=== PATIENT | female | born 1965 | race Caucasian/White ===

== ENCOUNTER 2022-12-08 10:00 | Outpatient (CLI) | payer OTHER ==
--- NOTE | 2022-12-16 10:36 | Mammography Report ---
BILATERAL DIGITAL SCREENING MAMMOGRAM 3D/2D: 12/08/2022 CLINICAL: Routine screening. Comparison is made to exams dated: 09/03/2017 mammogram and 08/24/2020 mammogram - [facility]. There are scattered areas of fibroglandular density in both breasts (category b / 25%-50% glandular t issue). There is a biopsy clip in the left breast. No significant masses, calcifications, or other findings are seen in either breast. There has been no significant interval change. IMPRESSION: NEGATIVE There is no mammographic evidence of malignancy. A 1 year screening mammogram is recommended. Based on the Tyrer Cuzick model (a risk assessment model) the patients lifetime risk is 9.2% and her 10 year risk is 3.0%. According to the ACR, ACS, and NCCN guidelines, an annual breast MRI exam marilin g with mammogram is recommended if the patients lifetime risk is 20% or greater. This exam was interpreted at Station ID: [id number]. NOTE: For mammograms, a report in lay terms will be sent to the patient. Approximately 15% of breast malignancies will not be visualized mammographically. In the management of a palpable breast mass, a negative mammogram must not discourage biopsy of a clinically suspicious lesion. Electronically Signed By: Antwon melissa/andrés:12/15/2022 14:50:00 letter sent: No_Letter ACR BI-RADS Category 1: Negative 3341F PARENCHYMAL PATTERN: (A) - The breast(s) demonstrate(s) scattered fibroglandular densities. BI-RADS CATEGORY: (1) - 1 Mammogram [id number] 1 year screening LATERALITY: (B)
== END 2022-12-08 10:01 | disposition home or self-care (01) ==
LOC: DI 10:00
PROVIDERS: ATTEND Nurse Practitioner
DX: Z12.31 Encounter for screening mammogram for malignant neoplasm of breast (principal)

== ENCOUNTER 2023-03-02 07:02 | Outpatient (CLI) | payer OTHER ==
[2023-03-02 07:42] LABS: ESTIMATED AVERAGE GLUCOSE 183 mg/dL (70-100)
[2023-03-02 07:47] LABS: ALBUMIN/GLOBULIN RATIO 1.7 (1.0-2.2); ALKALINE PHOSPHATASE 61 IU/L (42-121); ALT ALANINE AMINOTRANSFERASE 21 IU/L (10-60); AST ASPARTATE AMINOTRANSFERASE 17 IU/L (10-42); BILIRUBIN,TOTAL 0.4 mg/dL (0.2-1.0); BUN - BLOOD UREA NITROGEN 15 mg/dL (6-20); CALCIUM 8.9 mg/dL (8.5-10.3); CARBON DIOXIDE - CO2 30 mmol/L (21-32); CHLORIDE 106 mmol/L (101-111); CHOL/HDL RATIO 2.2 (<4.4); CHOLESTEROL 125 mg/dL; CREATININE 0.7 mg/dL (0.6-1.3); CREATININE,URINE 108.3 mg/dL; GFR - MDRD 87 (>89); GLUCOSE 235 mg/dL (74-104); HDL CHOLESTEROL 56 mg/dL; LDL CHOLESTEROL,CALCULATED 58 mg/dL; MICROALBUM/CREATININE RATIO,UR 57.2 ug/mg (<30.0); MICROALBUMIN,URINE 6.2 mg/dL; POTASSIUM 4.3 mmol/L (3.5-4.5); SODIUM 139 mmol/L (135-145); TOTAL PROTEIN 6.3 g/dL (6.4-8.9); TRIGLYCERIDES 53 mg/dL (48-352); VLDL CHOLESTEROL 11 mg/dL
== END 2023-03-02 07:03 | disposition home or self-care (01) ==
LOC: LAB 07:02
PROVIDERS: ATTEND Internal Medicine Endocrinology, Diabetes & Metabolism
DX: E11.65 Type 2 diabetes mellitus with hyperglycemia (principal); Z79.4 Long term (current) use of insulin
CPT/HCPCS: 36415; 80053; 80061; 82043; 82570; 83036; 83721

== ENCOUNTER 2023-04-17 06:31 | Day surgery (SDC) | payer OTHER ==
[2023-04-17] MEDS ORDERED: BUPIVACAINE 0.25% PF 30 ML VIAL ONE (06:53)
[2023-04-17] MEDS ORDERED: LACTATED RINGERS 1,000 ML IV ONE ×2 (06:58→08:27)
[2023-04-17] MEDS ORDERED: POTASSIUM IODIDE/IODINE 14 ML SOLUTION ONE (07:07)
--- NOTE | 2023-04-17 07:07 | ANESTHESIA ---
Pre-Anesthesia VS, & Labs - Diagnosis high grade squamous intraepithelial lesion - Procedure LEEP procedure Vital Signs: Temp Pulse Resp BP Pulse Ox O2 Flow Rate 36.1 C L 79 15 105/73 97 04/17/23 06:48 04/17/23 06:48 04/17/23 06:48 04/17/23 06:48 04/17/23 06:48 Height: 5 ft 6 in Weight (kg): 81.1 kg Body Mass Index: 28.8 BMI Classification: Overweight - NPO >8 hours - Is Patient ?: No - Lab Results Current Lab Results: Laboratory Tests 04/17/23 06:58: POC Whole Bld Glucose 286 H Lab results reviewed: Yes Home Medications and Allergies Home Medications: Ambulatory Orders Dulaglutide [Trulicity] 3 mg SQ OAW 03/18/23 Gabapentin [Neurontin] 300 mg PO DAILY 03/18/23 Insulin Aspart [Novolog Flexpen] 4 - 6 unit SUBQ AC 03/18/23 Insulin Glargine,Hum.rec.anlog [Basaglar Kwikpen U-100] 22 unit SUBQ DAILY 03/18/23 Metformin HCl 1,000 mg PO DAILY 03/18/23 Rosuvastatin Calcium [Crestor] 40 mg PO DAILY 03/18/23 Dulaglutide [Trulicity] 3 mg SQ OAW 03/18/23 Gabapentin [Neurontin] 300 mg PO DAILY 03/18/23 Insulin Aspart [Novolog Flexpen] 4 - 6 unit SUBQ AC 03/18/23 Insulin Glargine,Hum.rec.anlog [Basaglar Kwikpen U-100] 22 unit SUBQ DAILY 03/18/23 Metformin HCl 1,000 mg PO DAILY 03/18/23 Rosuvastatin Calcium [Crestor] 40 mg PO DAILY 03/18/23 Allergies/Adverse Reactions: Allergies Allergy/AdvReac Type Severity Reaction Status Date / Time ampicillin Allergy Hives Verified 03/18/23 14:32 Sulfa (Sulfonamide Allergy Hives Verified 03/18/23 14:32 Antibiotics) Anes History & Medical History - Anesthetic History Anesthesia Complications: reports: No previous complications Family history of Anesthesia Complications: Denies Family history of Malignant Hyperthermia: Denies - Medical History Cardiovascular: reports: None Pulmonary: reports: None Gastrointestinal: reports: None Urinary: reports: None Musculoskeletal: reports: None Endocrine/Autoimmune: reports: Type 2 diabetes Skin: reports: None Psychosocial: reports: Alcohol (social) - Surgical History Gynecologic: reports: Other Exam General: Alert, Oriented x3, Cooperative Dental: WNL Mouth Openin Fingerbreadth Neck Mobility: Normal Mallampati classification: II Thyromental Distance: 4-6 cm Respiratory: Lungs clear, Normal breath sounds, No respiratory distress Cardiovascular: Regular rate Neurological: Normal speech Mental/Cognitive Status: Alert/Oriented X3, Normal for patient Cognitive Status: Within normal limits Plan Anesthesia Type: General Consent for Procedure(s) Verified and Reviewed: Yes Code Status: Attempt Resuscitation ASA classification: 2-Mild systemic disease Is this case an emergency?: No
[2023-04-17] MEDS ORDERED: ePHEDrine 50 MG/ML VIAL IVP PRN (07:09)
[2023-04-17] MEDS ORDERED: METOCLOPRAMIDE 10 MG/2 ML VIAL IVP PRN (07:09)
[2023-04-17] MEDS ORDERED: HYDROmorphone 0.5 MG/0.5 ML SYRINGE IVP PRN (07:09)
[2023-04-17] MEDS ORDERED: ATROPINE ABBOJECT 1 MG/10 ML SYRINGE IVP PRN (07:09)
[2023-04-17] MEDS ORDERED: MORPHINE 2 MG/ML CARPUJECT IVP PRN (07:09)
[2023-04-17] MEDS ORDERED: fentaNYL 100 MCG/2 ML VIAL IVP PRN (07:09)
[2023-04-17] MEDS ORDERED: NALOXONE 0.4 MG/ML VIAL IVP PRN (07:09)
[2023-04-17] MEDS ORDERED: ONDANSETRON 4 MG/2 ML VIAL IVP PRN (07:09)
[2023-04-17] MEDS ORDERED: PROPOFOL 500 MG/50 ML 500 MG/50 ML VIAL ONE (07:13)
[2023-04-17] MEDS ORDERED: MIDAZOLAM 2 MG/2 ML VIAL ONE (07:20)
--- NOTE | 2023-04-17 07:29 | HISTORY & PHYSICAL EXAMINATION ---
History and Physical - History and Physical HPI: Patient is a 58-year-old postmenopausal female presenting today for scheduled. LEEP procedure for H LILIANA with HPV positive. She has no further questions. All other symptoms reviewed and were negative except per HPI. PMH Diabetes PSH Endometrial ablation Breast surgery SH Previous smoker Family History Mother: Allergies Maternal grandmother: Arthritis, coronary artery disease, high cholesterol, hypertension Maternal grandfather: Stroke, arthritis, hyperlipidemia, hypertension Allergies Sulfa Ampicillin Medications Trulicity 1.5 mg / 0.5 mL Basaglar Rosuvastatin 40 mg NovoLog Metformin 500 mg Gabapentin 100 mg Physical exam: General: Alert, oriented, no acute distress Head: Normal cephalic atraumatic Eyes: PERRLA, extraocular motions intact. Respiratory: Normal rate of respiration. No accessory muscle use, normal respiratory effort. Cardiovascular: Regular rate and rhythm Abdomen: Nontender, nondistended Extremities: Normal range of motion Neuro: Oriented x3. Normal movements Psych: Appropriate mood and affect. Normal judgment and insight Plan 58-year-old postmenopausal female here for LEEP HSIL: Patient is very anxious about this process, and surgery was delayed previously. We discussed the risk, benefits, alternatives of this. She has no questions and is ready to proceed. Diabetes: Trulicity held, so sugar is little high. We will give subcutaneous insulin.
[2023-04-17] MEDS ORDERED: INSULIN LISPRO 300 UNIT/3 ML PEN SUBQ SCH (07:35)
[2023-04-17] MEDS ORDERED: LACTATED RINGERS 1,000 ML IV SCH (08:00)
[2023-04-17] MEDS ORDERED: POTASSIUM IODIDE/IODINE 14 ML SOLUTION TOP ONE (08:02)
[2023-04-17] MEDS ORDERED: BUPIVACAINE 0.25% PF 30 ML VIAL SUBQ ONE ×2 (08:02)
[2023-04-17] MEDS ORDERED: FERRIC SUBSULFATE 8 ML SOLUTION (FOR OR) TOP ONE (08:13)
[2023-04-17] MEDS ORDERED: oxyCODONE 5 MG TABLET PO PRN (08:24)
--- NOTE | 2023-04-17 08:33 | OPERATIVE REPORT ---
Operative Report - General Procedure Date: 04/17/23 Planned Procedure: LEEP Conization Pre-Op Diagnosis: HSIL Procedure Performed: LEEP Conization Post Op Diagnosis: HSIL, Status post LEEP - Procedure Note Primary Surgeon: Kaden Marques MD Anesthesia Provider: Lisa Olivarez CRNA Anesthesia Technique: Other (IV general) Pathology: LEEP conization, tag at 12:00 IV Fluids (mL): 800 Estimated Blood Loss (mL): 20 Urine Output (mL): 0 (Voided prior to procedure) Indications: H LILIANA Findings: Friable cervix with erythema at approximate 11:00 and 5:00. Complications: None - Other Other Information/Narrative: Patient was taken to the operating room where IV anesthesia was obtained without difficulty. She was placed in the dorsolithotomy position and after a timeout, a coated speculum was used to visualize the cervix. A small amount of local anesthesia was used to infiltrate the edges. There was some friable tissue and a small amount of bleeding when wiped with a sponge stick. I then used Lugol's solution to highlight the transformation zone. After good observation of the entire cervix, I used a LEEP electrode to con's eyes the cervix and remove the transformation zone. The sample was tagged at 12:00. Using Bovie electrocautery, mostly bleeding was stopped. After small amount of oozing, Monsel's solution was applied which achieved good hemostasis. The patient was stable and taken to PACU in good condition after counts were correct.
[2023-04-17 09:03] VITALS: BP 111/70; O2SAT 98
--- NOTE | 2023-04-17 10:49 | ANESTHESIA POST OP EVALUATION ---
Anesthesia Post Eval - Post Anesthesia Eval Vitals: Last Vital Signs Temp 36.2 C L 04/17/23 08:54 Pulse 73 04/17/23 08:54 Resp 16 04/17/23 08:54 BP 111/70 04/17/23 08:54 Pulse Ox 98 04/17/23 08:54 O2 Flow Rate CV Function Including HR & BP: Stable Pain Control: Satisfactory Nausea & Vomiting: Negative Mental Status: Baseline Respiratory Status: Airway Patent Hydration Status: Satisfactory Anesthesia Complications: None
[2023-04-17] MEDS ORDERED: IBUPROFEN 600 MG TABLET PO SCH (12:00)
== END 2023-04-17 06:32 | disposition home or self-care (01) ==
LOC: SDS 06:31
PROVIDERS: ATTEND Obstetrics & Gynecology
PROC: 0UBC7ZX Excision of Cervix, Via Natural or Artificial Opening, Diagnostic (ICD-10-PCS; principal; 2023-04-17 07:30)
DX: D06.0 Carcinoma in situ of endocervix (principal); E11.9 Type 2 diabetes mellitus without complications; Z79.84 Long term (current) use of oral hypoglycemic drugs; Z79.85 Long-term (current) use of injectable non-insulin antidiabetic drugs
CPT/HCPCS: 57522; A9270; J7120

== ENCOUNTER 2023-09-26 11:18 | Outpatient (CLI) | payer OTHER ==
[2023-09-26 11:37] LABS: BASOPHILS # (AUTO) 0.1 10^3/uL (0.0-0.1); BASOPHILS % (AUTO) 1.3 %; EOSINOPHILS # (AUTO) 0.1 10^3/uL (0.0-0.7); EOSINOPHILS % (AUTO) 1.5 %; HGB - HEMOGLOBIN 14.8 g/dL (12.0-16.0); LYMPHOCYTES # (AUTO) 1.8 10^3/uL (1.5-3.5); LYMPHOCYTES % (AUTO) 36.7 %; MEAN CORPUSCULAR HEMOGLOBIN 30.3 pg (27.0-31.0); MEAN CORPUSCULAR HGB CONC 33.6 g/dL (32.0-36.0); MEAN PLATELET VOLUME 9.7 fL (7.9-10.8); MONOCYTES # (AUTO) 0.4 10^3/uL (0.0-1.0); MONOCYTES % (AUTO) 7.3 %; NEUTROPHILS # (AUTO) 2.6 10^3/uL (1.5-6.6); PLT - PLATELET COUNT 243 10^3/uL (130-450); RED BLOOD COUNT 4.89 10^6/uL (4.20-5.40); RED CELL DISTRIBUTION WIDTH 11.9 % (12.0-15.0); WHITE BLOOD COUNT 4.8 x10^3/uL (4.8-10.8)
[2023-09-26 11:47] LABS: ALBUMIN 4.4 g/dL (3.2-5.5); ALBUMIN/GLOBULIN RATIO 1.7 (1.0-2.2); ALKALINE PHOSPHATASE 56 IU/L (42-121); ALT ALANINE AMINOTRANSFERASE 19 IU/L (10-60); AST ASPARTATE AMINOTRANSFERASE 17 IU/L (10-42); BILIRUBIN,TOTAL 0.6 mg/dL (0.2-1.0); BUN - BLOOD UREA NITROGEN 12 mg/dL (6-20); CARBON DIOXIDE - CO2 30 mmol/L (21-32); CHLORIDE 102 mmol/L (101-111); CHOL/HDL RATIO 2.7 (<4.4); CHOLESTEROL 134 mg/dL; CREATININE 0.8 mg/dL (0.6-1.3); GFR - MDRD 74 (>89); GLUCOSE 219 mg/dL (74-104); HDL CHOLESTEROL 50 mg/dL; LDL CHOLESTEROL,CALCULATED 60 mg/dL; LDL/HDL RATIO 1.2 (<4.4); POTASSIUM 4.8 mmol/L (3.5-4.5); SODIUM 137 mmol/L (135-145); TRIGLYCERIDES 120 mg/dL (48-352); VLDL CHOLESTEROL 24 mg/dL
[2023-09-26 11:48] LABS: CREATININE,URINE 66.3 mg/dL; MICROALBUM/CREATININE RATIO,UR 16.6 ug/mg (<30.0); MICROALBUMIN,URINE 1.1 mg/dL
[2023-09-26 12:09] LABS: ESTIMATED AVERAGE GLUCOSE 180 mg/dL (70-100); HEMOGLOBIN A1c% 7.9 % (4.27-6.07)
== END 2023-09-26 11:19 | disposition home or self-care (01) ==
LOC: LAB 11:18
PROVIDERS: ATTEND Internal Medicine
DX: E11.9 Type 2 diabetes mellitus without complications (principal)
CPT/HCPCS: 36415; 80053; 80061; 82043; 82570; 83036; 83721; 85025

== ENCOUNTER 2023-12-11 08:36 | Outpatient (CLI) | payer OTHER | END 2023-12-11 08:37 | disposition home or self-care (01) | LOC: SC 08:36 | PROVIDERS: ATTEND Nurse Practitioner Family | DX: G47.33 Obstructive sleep apnea (adult) (pediatric) (principal); E66.3 Overweight; Z68.28 Body mass index [BMI] 28.0-28.9, adult | CPT/HCPCS: 95806 ==

== ENCOUNTER 2024-01-12 10:26 | Outpatient (CLI) | payer OTHER ==
--- NOTE | 2024-01-12 10:21 | SLEEP CARE CONSULTATION ---
Information from patient questionnaire entered by Migdalia Mast. I have reviewed and concur with the information entered by Migdalia Mast. This document represents the service I personally performed and the decisions made by , Harriet Soares ARNP. History of Present Illness Service Date and Time: 01/12/2024 1000 Initial Goldonna Sleepiness Scale score: 5 (11/20/2023) Current [place]onna Sleepiness Scale score: 4 Additional HPI information: SANDRA ORTEGA returns for follow up and results of the recently performed home sleep study. The sleep study done on 12/11/2023 showed mild obstructive sleep apnea with an average AHI of 10.7 and guillermina oxygen saturation of 83%. I explained the pathophysiology behind obstructive sleep apnea. We then spent quite a bit of time discussing different treatment options. For mild obstructive sleep apnea, surgery and oral appliance are alternatives to nasal CPAP therapy but in moderate or severe cases, nasal CPAP is the most effective and reliable treatment. I reviewed the impact of weight changes on sleep apnea and strongly recommended losing weight. After some discussion, the patient opted to go with the nasal CPAP therapy. Nasal autoCPAP set at 4-15 cmH20 will be ordered with rationale explained. A manual titration study will be ordered if unable to find optimal pressure with office adjustments. I explained how CPAP machine works and what to expect when using the machine. Using CPAP every night in order to get used to it was emphasized. Patient advised to put CPAP mask on before getting into bed so as not to fall asleep without CPAP. To assist acclimation to CPAP use, it could also be used for a short time during day while reading or watching TV. The patient was instructed to call the CPAP supplier to discuss any mechanical problem that may occur. If the mask given is uncomfortable or is difficult to keep on through the night even with adjustment, contact the CPAP supplier as many will replace with another mask style if notified before 30 days. If snoring or perceives is not getting enough air or too much air from the machine, notify this office. Patient counseled not drink alcohol less than 4 hours before bedtime as it can increase snoring and apnea. Patient was cautioned about risks of drowsy driving until sleepiness symptoms resolve. Patient denies drowsy driving. Sleep Study - Results Type of Sleep Study: Home sleep study (COMPLETED 12/11/23 MILD) Prior sleep studies: No Polysomnography/Home Sleep Study results: Physician Impression: The quality of the study is good. The length of the study is adequate (> 240 minutes). Please also see the tabulated and graphic data. 1. Obstructive Sleep Apnea-Hypopnea (ICD-10 G47.33), mild, with an AHI of 10.7/hr and guillermina SaO2 of 83%. During the study, the patient had 27 apneas (27 obstructive, 0 central, 0 mixed) and 40 hypopneas. The longest episode lasted 92.5 seconds. The patient did not sleep supine during this study. 2. Hypoxemia (ICD-10 R09.02), mild, with the lowest oxygen saturation of 83 % and 3.2 minutes with SaO2 under 90%. Baseline oxygen saturation was normal (Average oxygen saturation was 93%). Allergies and Home Medications Known drug allergies: Yes (as listed) Drug allergies reviewed: Yes Home medication list reviewed: Yes (stopped Trulicity; started Ozempic) Allergy and home medication list: Allergies ampicillin Allergy (Verified 01/08/24 13:21) Hives Sulfa (Sulfonamide Antibiotics) Allergy (Verified 01/08/24 13:21) Hives Review of Systems Review of systems same as previous: Yes (no changes) Physical Exam Vital signs obtained and entered by: Harriet Rios NP Height: 5 ft 6 in Weight: 179 lb 6.4 oz (per pt) Body Mass Index: 28.9 BMI Classification: Overweight Impression and Plan 1. Obstructive Sleep Apnea-Hypopnea Syndrome, mild, with lowest oxygen saturation of 83%. Obviously this is the cause of the patients symptoms of unrefreshed sleep, and excessive daytime sleepiness. Positive pressure therapy could benefit hypertension. As mentioned above, the patient will be started on nasal autoCPAP therapy with pressure set at 4-15 cmH2O. A manual titration study will be completed if unable to find optimal treatment pressure with office adjustments. Compliance guidelines also reviewed. A copy of compliance guidelines will be given for reference at check out. Because the apnea is more severe supine, I instructed to avoid sleeping supine using pillow positioning until able to start CPAP use. 2. Hypoxemia, mild, with a guillermina oxygen saturation of 83% and 3.2 minutes spent under 90%. The baseline oxygen saturation was normal with an average oxygen saturation of 93%. 3. Overweight, unspecified. Currently patients BMI is 28.9. Obesity increases the risk of apnea, CPAP pressure requirements and overall health risks especially cardiovascular and diabetes. Thus patient is advised to lose weight. * Nasal auto CPAP therapy, pressure at 4-15 cm H2O. * Attempt to lose weight. * Avoid alcohol consumption near bedtime. * Avoid supine sleep until using CPAP. * The patient is again cautioned about driving until sleepiness completely resolves. * Return one month after CPAP obtained. I will assess response to therapy and compliance at that time. Counseling Topics: Weight loss health impact Prescriptions: Auto CPAP Visit Type: Telehealth Video Video Type: Doximmarlon Patient Location: Home Location of Provider: Office Patient agrees and consents to this telehealth visit type: Yes Patient agrees to have their insurance billed: Yes Time Spent with Patient (minutes): 21 Provider Statement: I spent 100% of the Telehealth Video Call with the patient with greater than 50% spent counseling the patient and coordination of care.
== END 2024-01-12 10:27 | disposition home or self-care (01) ==
LOC: SC 10:26
PROVIDERS: ATTEND Nurse Practitioner Family
DX: G47.33 Obstructive sleep apnea (adult) (pediatric) (principal); R09.02 Hypoxemia; E66.3 Overweight; Z68.28 Body mass index [BMI] 28.0-28.9, adult

== ENCOUNTER 2024-03-04 06:57 | Outpatient (CLI) | payer OTHER ==
[2024-03-04 07:30] LABS: ALBUMIN 4.1 g/dL (3.2-5.5); ALBUMIN/GLOBULIN RATIO 1.5 (1.0-2.2); ALKALINE PHOSPHATASE 57 IU/L (42-121); ALT ALANINE AMINOTRANSFERASE 13 IU/L (10-60); AST ASPARTATE AMINOTRANSFERASE 14 IU/L (10-42); BILIRUBIN,TOTAL 0.4 mg/dL (0.2-1.0); BUN - BLOOD UREA NITROGEN 16 mg/dL (6-20); CALCIUM 9.2 mg/dL (8.5-10.3); CARBON DIOXIDE - CO2 29 mmol/L (21-32); CHLORIDE 101 mmol/L (101-111); CHOL/HDL RATIO 3.2 (<4.4); CHOLESTEROL 168 mg/dL; CREATININE 0.8 mg/dL (0.6-1.3); GFR - MDRD 74 (>89); GLUCOSE 166 mg/dL (74-104); HDL CHOLESTEROL 53 mg/dL; LDL CHOLESTEROL,CALCULATED 96 mg/dL; LDL/HDL RATIO 1.8 (<4.4); POTASSIUM 4.2 mmol/L (3.5-4.5); SODIUM 137 mmol/L (135-145); TOTAL PROTEIN 6.8 g/dL (6.4-8.9); TRIGLYCERIDES 96 mg/dL; VLDL CHOLESTEROL 19 mg/dL
[2024-03-04 07:31] LABS: CREATININE,URINE 47.9 mg/dL
[2024-03-04 07:33] LABS: MICROALBUMIN,URINE < 0.7 mg/dL
[2024-03-04 09:36] LABS: ESTIMATED AVERAGE GLUCOSE 166 mg/dL (70-100); HEMOGLOBIN A1c% 7.4 % (4.27-6.07)
== END 2024-03-04 06:58 | disposition home or self-care (01) ==
LOC: LAB 06:57
PROVIDERS: ATTEND Internal Medicine Endocrinology, Diabetes & Metabolism
DX: E11.65 Type 2 diabetes mellitus with hyperglycemia (principal); Z79.4 Long term (current) use of insulin
CPT/HCPCS: 36415; 80053; 80061; 82043; 82570; 83036; 83721

== ENCOUNTER 2025-04-26 18:02 | Observation (INO) ==
[2025-04-26 18:34] LABS: HCT - HEMATOCRIT 49.5 % (37.0-47.0); HGB - HEMOGLOBIN 16.5 g/dL (12.0-16.0); MEAN PLATELET VOLUME 9.9 fL (7.9-10.8); NRBC ABSOLUTE COUNT (AUTO) 0.00 x10^3/uL; NUCLEATED RED BLOOD CELLS AUTO 0.0 /100WBC; PLT - PLATELET COUNT 379 10^3/uL (130-450); RED CELL DISTRIBUTION WIDTH 13.2 % (12.0-15.0)
[2025-04-26] MEDS: SODIUM CHLORIDE 0.9% 1,000 ML IV STA (18:42)
--- OUTSIDE RECORDS SUMMARY | 2025-04-26 19:04 | EXTERNAL MEDICAL SUMMARY RPT | Continuity of Care Document ---
Author Organization [facility] Address [address] [address] Phone Results/Labs test date facility value unit notes Result panel 1 GLUCOSE, WHOLE BLOOD 2025-04-26 18:13 [facility] 410 (missing) (missing) Result panel 2 NUCLEATED RED BLOOD CELLS AUTO 2025-04-26 18:28 [facility] 0.0 /100wbc (missing) EOSINOPHILS # (AUTO) 2025-04-26 18:28 [facility] 0.0 10 3/ul (missing) NRBC ABSOLUTE COUNT (AUTO) 2025-04-26 18:28 [facility] 0.00 x10 3/ul (missing) BASOPHILS # (AUTO) 2025-04-26 18:28 [facility] 0.1 10 3/ul (missing) MONOCYTES # (AUTO) 2025-04-26 18:28 [facility] 0.6 10 3/ul (missing) LYMPHOCYTES # (AUTO) 2025-04-26 18:28 [facility] 1.4 10 3/ul (missing) WHITE BLOOD COUNT 2025-04-26 18:28 [facility] 11.7 x10 3/ul (missing) RED CELL DISTRIBUTION WIDTH 2025-04-26 18:28 [facility] 13.2 % (il ssi) HGB - HEMOGLOBIN 2025-04-26 18:28 [facility] 16.5 g /dl (missing) LIPASE 2025-04-26 18:28 [facility] 22 u/l As of December 2022 testing method has changed, this may include reference ranges. MEAN CORPUSCULAR HEMOGLOBIN 2025-04-26 18:28 [facility] 29.4 pg (missing) MEAN CORPUSCULAR HGB CONC 2025-04-26 18:28 [facility] 33.3 g/dl (missing) PLT - PLATELET COUNT 2025-04-26 18:28 [facility] 379 10 3/ul (missing) HCT - HEMATOCRIT 2025-04-26 18:28 [facility] 49.5 % (missing) RED BLOOD [facility] 2025-04-26 [facility] 6/ul (missing) MEAN CORPUSCULAR VOLUME 2025-04-26 18:28 [facility] 88.1 fl (missing) NEUTROPHILS # (AUTO) 2025-04-26 18:28 [facility] 9.5 10 3/ul (missing) MEAN PLATELET VOLUME 2025-04-26 18:28 [facility] 9.9 fl (missing) KETONES, SERUM (ACETEST) 2025-04-26 18:28 [facility] SMALL (missing) (missing) Social History date description facility
[2025-04-26 19:06] LABS: ALT ALANINE AMINOTRANSFERASE 19.0 IU/L (10-60); AST ASPARTATE AMINOTRANSFERASE 13.0 IU/L (10-42); BUN - BLOOD UREA NITROGEN 16.0 mg/dL (6-20); CARBON DIOXIDE - CO2 11.0 mmol/L (21-32); CREATININE 0.9 mg/dL (0.6-1.3); GFR - MDRD 64.0 (>89)
--- NOTE | 2025-04-26 19:15 | ED Physician Documentation ---
History of Present Illness Stated complaint Stated Complaint: N/V, HEAD PX Chief complaint Chief Complaint: General Additonal information Additional information: 60-year-old female with a history of type 2 diabetes and prior diabetic ketoacidosis requiring life support for three days presents to the emergency department via private vehicle for evaluation of nausea, vomiting, and headache. The patient reports that her symptoms began earlier today and have progressively worsened. 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 She has not taken her long-acting insulin for the past week because of insurance issues and has been significantly cutting back on her short-acting insulin doses to make her supply last. She denies chest pain, shortness of breath, or abdominal pain. No recent illness, fever, or sick contacts reported. Meds/Allgy Home Medications Ambulatory Orders Medication Instructions Recorded Confirmed insulin aspart U-100 100 unit/mL 4 - 6 unit subcut AC 03/18/23 08/02/24 (3 mL) subcutaneous pen (Novolog FlexPen U-100 Insulin aspart) insulin glargine 100 unit/mL (3 22 unit subcut DAILY 0 03/18/23 08/02/24 mL) subcutaneous pen (Basaglar KwikPen U-100 Insulin) metformin 1,000 mg tablet 1,000 mg PO DAILY 03/18/23 0 08/02/24 semaglutide 1 mg/dose (4 mg/3 mL) See Rx Instructions .Route .COMPLEX 01/12/24 08/02/24 subcutaneous pen injector (Ozempic) gabapentin 300 mg capsule 300 mg PO DAILY #270 caps 08/02/24 rosuvastatin 40 mg tablet (Crestor) 40 mg PO DAILY #90 tabs 07/28/24 08/02/24 semaglutide 1 mg/dose (4 mg/3 mL) 1 mg subcut QWEEK 08/02/24 subcutaneous pen injector (Ozempic) Allergies Allergies Allergy/AdvReac Type Severity Reaction Status Date / Time amoxicillin Allergy Severe Hives Verified 04/26/25 18:17 empagliflozin (From Allergy Severe Unknown Verified 04/26/25 18:17 Jardiance) niacin Allergy Severe Hives Verified 04/26/25 18:17 ampicillin Allergy Hives Verified 04/26/25 18:17 Sulfa (Sulfonamide Allergy Hives Verified 04/26/25 18:17 Antibiotics) PFSH Active Problems All Active Problems (Updated 04/26/25 @ 20:42 by Ashley Evangelista RN) Swollen L ankle (Acute) Type 2 diabetes mellitus (Acute) Tinnitus, bilateral (Acute) Medical History Medical History (Updated 04/26/25 @ 20:42 by Ashley Evangelista RN) DKA (diabetic ketoacidosis) Social History Social History If you are a former smoker, when did you quit? (Date/Year): 1991 Number of Years Smoked: 4 How many cigarettes a day do you smoke? (20 cigarettes=1 Pk): 2 Second hand tobacco smoke exposure: No Do you dip or chew tobacco?: No Do you vape?: No Do you feel safe in your home environment?: Yes History of physical, verbal, emotional, or financial abuse?: No ETOH Use: Wine ETOH - Additional Notes: 1-2 per week Substance Use: denies use Exam Exam Vital Signs: Vital Signs x48h Temp Pulse Resp BP Pulse Ox 04/26/25 21:57 90 141/67 H 98 04/26/25 21:27 94 136/70 H 97 04/26/25 20:57 92 144/70 H 99 04/26/25 18:30 18 04/26/25 18:10 36.8 C 111 H 18 172/94 H 97 Constitutional normal general appearance, no apparent distress, average body habitus, no limitations and alert [facility] normocephalic and head/scalp atraumatic Eyes PERRL Chest inspection of chest normal Respiratory breath sounds equal bilaterally and normal respiratory effort Cardiovascular normal heart rate noted Gastrointestinal abdomen normal to inspection, abdomen soft to palpation, nontender to palpation, nondistended and no masses Extremities normal to inspection Psychiatry tearful Skin skin color normal Results Vitals Vitals: Vital Signs - 24 hr 04/26/25 18:10 04/26/25 18:30 04/26/25 19:16 Temperature 36.8 C Temperature Source Temporal Artery Scan Pulse Rate 111 H Respiratory Rate 18 18 Blood Pressure 172/94 H O2 Saturation 97 O2 Source Room air Room air Pain Intensity 5 4 7 04/26/25 20:57 04/26/25 21:24 10/29/25 21:27 Temperature Temperature Source Pulse Rate 92 94 Respiratory Rate Blood Pressure 144/70 H 136/70 H O2 Saturation 99 97 O2 Source Room air Room air Pain Intensity 3 04/26/25 21:57 04/26/25 22:42 Temperature Temperature Source Pulse Rate 90 Respiratory Rate Blood Pressure 141/67 H O2 Saturation 98 O2 Source Room air Pain Intensity 7 Oxygen O2 Source Room air EKG (time done) 2002: EKG releavant findings:: EKG personally interpreted by author of this note. 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) Computer interpretation: Agree with computer Labs Labs: Laboratory Tests 04/26/25 04/26/25 04/26/25 18:13 18:28 19:24 WBC 11.7 H RBC 5.62 H Hgb 16.5 H Hct 49.5 H MCV 88.1 MCH 29.4 MCHC 33.3 RDW 13.2 Plt Count 379 MPV 9.9 Neut # (Auto) 9.5 H Lymph # (Auto) 1.4 L Mcintosh # (Auto) 0.6 Eos # (Auto) 0.0 Baso # (Auto) 0.1 Absolute Nucleated RBC 0.00 Nucleated RBC % 0.0 VBG pH 7.121 L* VBG pCO2 26.0 L VBG pO2 43.8 VBG HCO3 8.5 L VBG Total CO2 9.3 L VBG O2 Saturation 63.0 VBG Base Excess -21.0 L Sodium 130 L Potassium 4.3 Chloride 96 L Carbon Dioxide 11 L* Anion Gap 23.0 H BUN 16 Creatinine 0.9 Estimated GFR (MDRD) 64 L Glucose 379 H POC Whole Bld Glucose 410 Calcium 9.3 Phosphorus Total Bilirubin 0.5 AST 13 ALT 19 Alkaline Phosphatase 99 Total Protein 8.2 Albumin 4.8 Globulin 3.4 Albumin/Globulin Ratio 1.4 Lipase 22 Serum Ketones SMALL H 04/26/25 04/26/25 04/26/25 20:39 20:42 21:31 WBC RBC Hgb Hct MCV MCH MCHC RDW Plt Count MPV Neut # (Auto) Lymph # (Auto) Mcintosh # (Auto) Eos # (Auto) Baso # (Auto) Absolute Nucleated RBC Nucleated RBC % VBG pH 7.144 L* VBG pCO2 24.5 L VBG pO2 38.0 VBG HCO3 8.5 L VBG Total CO2 9.3 L VBG O2 Saturation 61.0 VBG Base Excess -20.6 L Sodium 131 L Potassium 4.0 Chloride 101 Carbon Dioxide 10 L* Anion Gap 20.0 H BUN 15 Creatinine 0.7 Estimated GFR (MDRD) 86 L Glucose 331 H POC Whole Bld Glucose 349 277 Calcium 8.2 L Phosphorus Total Bilirubin AST ALT Alkaline Phosphatase Total Protein Albumin Globulin Albumin/Globulin Ratio Lipase Serum Ketones 04/26/25 04/26/25 22:25 22:33 WBC RBC Hgb Hct MCV MCH MCHC RDW Plt Count MPV Neut # (Auto) Lymph # (Auto) Mcintosh # (Auto) Eos # (Auto) Baso # (Auto) Absolute Nucleated RBC Nucleated RBC % VBG pH 7.120 L* VBG pCO2 33.5 L VBG pO2 50.7 H VBG HCO3 11.0 L VBG Total CO2 12.0 L VBG O2 Saturation 76.0 VBG Base Excess -18.5 L Sodium 133 L Potassium 3.2 L Chloride 106 Carbon Dioxide 13 L Anion Gap 14.0 H BUN 13 Creatinine 0.6 Estimated GFR (MDRD) 102 Glucose 222 H POC Whole Bld Glucose 242 Calcium 7.6 L Phosphorus 1.9 L Total Bilirubin AST ALT Alkaline Phosphatase Total Protein Albumin Globulin Albumin/Globulin Ratio Lipase Serum Ketones PD Medical Decision Making ED course ED course: 60-year-old female with a history of type 2 diabetes and prior DKA requiring life support presents with nausea, vomiting, and headache. The patient reports medication noncompliance over the past week due to job loss following the government shutdown, which has resulted in difficulty obtaining insulin refills. She has not taken her long-acting insulin for approximately one week and has significantly reduced her short-acting insulin use. On arrival, she was tachycardic and hypertensive but alert and oriented, appearing mildly dehydrated. Workup revealed findings consistent with diabetic ketoacidosis (DKA). Laboratory results showed glucose 410 mg/dL, anion gap 23, CO2 11, and venous pH 7.12, all consistent with metabolic acidosis. serum ketones positive for ketones. Serial labs demonstrated persistent acidosis with gradual improvement after initiation of therapy. The patients creatinine and BUN were within normal limits, indicating preserved renal function. Electrolytes were notable for mild hyponatremia (Na [id number]) and later mild hypokalemia (K 3.2). White blood cell count was 11.7, likely stress-related, with no signs of infection. EKG showed sinus rhythm with left atrial enlargement and no acute ischemic changes. The patient was started on IV fluids and insulin infusion per DKA protocol, with close monitoring of electrolytes and serial venous blood gases. Potassium replacement was initiated as levels began to decline with insulin therapy. There is no evidence of infection, myocardial ischemia, or other precipitating cause aside from insulin omission due to access barriers. Unfortunately there is no beds available in our ICU so patient will board in the emergency department overnight until her DKA is resolved report given to oncoming physician to further manage patient's care overnight. Discharge Plan Discharge Prescriptions: No Action gabapentin 300 mg capsule 300 mg PO DAILY Qty: 270 0RF rosuvastatin [Crestor] 40 mg tablet 40 mg PO DAILY Qty: 90 3RF metformin 1,000 MG tablet 1,000 mg PO DAILY insulin aspart U-100 [Novolog FlexPen U-100 Insulin] 100 UNIT/ML insulin pen 4 - 6 unit subcut AC insulin glargine [Basaglar KwikPen U-100 Insulin] 100 UNIT/ML insulin pen 22 unit subcut DAILY Ozempic 1 MG/0.75 ML pen injector See Rx Instructions .Route .COMPLEX Rx Instructions: QD Ozempic 1 mg/dose (4 mg/3 mL) pen injector 1 mg subcut QWEEK Print Language: Maltese Stand Alone Forms: PCP List
[2025-04-26] MEDS: KETOROLAC 15 MG/ML VIAL IVP STA (19:16)
[2025-04-26 19:30] LABS: VBG BASE EXCESS -21.0 mmol/L (-2 - +2); VBG PCO2 26.0 mmHg (41-51); VBG PO2 43.8 mmHg (25-47); VBG TOTAL CO2 9.3 mmol/L (24-29)
[2025-04-26 19:31] LABS: VBG PH 7.121 (7.31-7.41)
[2025-04-26] MEDS: INSULIN REGULAR IN 0.9 % NS 100 UNIT/100 ML BAG IV STA (20:11)
[2025-04-26] MEDS: SODIUM CHLORIDE 0.9% 1,000 ML IV SCH (20:23)
[2025-04-26] MEDS: INSULIN REGULAR, HUMAN 300 UNIT/3 ML PEN IVP STA (20:25)
[2025-04-26 20:49] LABS: VBG BASE EXCESS -20.6 mmol/L (-2 - +2); VBG PCO2 24.5 mmHg (41-51); VBG PO2 38.0 mmHg (25-47); VBG TOTAL CO2 9.3 mmol/L (24-29)
[2025-04-26 20:52] LABS: VBG PH 7.144 (7.31-7.41)
[2025-04-26 21:09] LABS: BUN - BLOOD UREA NITROGEN 15.0 mg/dL (6-20); CARBON DIOXIDE - CO2 10.0 mmol/L (21-32); CREATININE 0.7 mg/dL (0.6-1.3); GFR - MDRD 86.0 (>89)
[2025-04-26] MEDS: ONDANSETRON 4 MG/2 ML VIAL IVP STA (22:00)
[2025-04-26] MEDS: POTASSIUM CHLOR 10 MEQ/100 ML 10 MEQ/100 ML BAG IV SCH (22:13)
[2025-04-26 22:39] LABS: VBG BASE EXCESS -18.5 mmol/L (-2 - +2); VBG PCO2 33.5 mmHg (41-51); VBG PO2 50.7 mmHg (25-47); VBG TOTAL CO2 12.0 mmol/L (24-29)
[2025-04-26 22:40] LABS: VBG PH 7.120 (7.31-7.41)
[2025-04-26] MEDS: ACETAMINOPHEN 500 MG TABLET PO STA (22:42)
[2025-04-26 22:52] LABS: BUN - BLOOD UREA NITROGEN 13.0 mg/dL (6-20); CARBON DIOXIDE - CO2 13.0 mmol/L (21-32); CREATININE 0.6 mg/dL (0.6-1.3); GFR - MDRD 102.0 (>89); PHOSPHORUS 1.9 mg/dL (2.5-5.0)
[2025-04-27 00:37] LABS: GLUCOSE, URINE (UA) 500 mg/dL (NEGATIVE); KETONES,URINE (UA) >=80 mg/dL (NEGATIVE); OCCULT BLOOD,URINE NEGATIVE (NEGATIVE)
[2025-04-27 00:49] LABS: VBG BASE EXCESS -18.5 mmol/L (-2 - +2); VBG PCO2 26.0 mmHg (41-51); VBG PO2 40.0 mmHg (25-47); VBG TOTAL CO2 10.8 mmol/L (24-29)
[2025-04-27 00:51] LABS: VBG PH 7.189 (7.31-7.41)
[2025-04-27 01:12] LABS: BUN - BLOOD UREA NITROGEN 12.0 mg/dL (6-20); CARBON DIOXIDE - CO2 12.0 mmol/L (21-32); CREATININE 0.6 mg/dL (0.6-1.3); GFR - MDRD 102.0 (>89)
[2025-04-27] MEDS: DEXTROSE 5%-0.45% NACL 1,000 ML IV STA (01:44)
[2025-04-27 03:04] LABS: VBG PCO2 26.0 mmHg (41-51); VBG PO2 61.1 mmHg (25-47); VBG TOTAL CO2 9.9 mmol/L (24-29)
[2025-04-27 03:05] LABS: VBG BASE EXCESS -20.0 mmol/L (-2 - +2)
[2025-04-27 03:07] LABS: VBG PH 7.147 (7.31-7.41)
[2025-04-27 03:25] LABS: BUN - BLOOD UREA NITROGEN 11.0 mg/dL (6-20); CARBON DIOXIDE - CO2 10.0 mmol/L (21-32); CREATININE 0.6 mg/dL (0.6-1.3); GFR - MDRD 102.0 (>89)
[2025-04-27 05:04] LABS: BUN - BLOOD UREA NITROGEN 10.0 mg/dL (6-20); CARBON DIOXIDE - CO2 14.0 mmol/L (21-32); CREATININE 0.6 mg/dL (0.6-1.3); GFR - MDRD 102.0 (>89); PHOSPHORUS 1.4 mg/dL (2.5-5.0)
[2025-04-27 05:09] LABS: VBG BASE EXCESS -16.3 mmol/L (-2 - +2); VBG PCO2 28.6 mmHg (41-51); VBG PH 7.215 (7.31-7.41); VBG PO2 81.0 mmHg (25-47); VBG TOTAL CO2 12.6 mmol/L (24-29)
[2025-04-27] MEDS: ACETAMINOPHEN 325 MG TABLET PO STA (06:35)
[2025-04-27 07:22] LABS: VBG PH 7.257 (7.31-7.41)
[2025-04-27 07:23] LABS: VBG BASE EXCESS -16.9 mmol/L (-2 - +2); VBG PCO2 23.3 mmHg (41-51); VBG PO2 56.9 mmHg (25-47); VBG TOTAL CO2 11.2 mmol/L (24-29)
[2025-04-27 07:36] LABS: BUN - BLOOD UREA NITROGEN 9.0 mg/dL (6-20); CARBON DIOXIDE - CO2 13.0 mmol/L (21-32); CREATININE 0.6 mg/dL (0.6-1.3); GFR - MDRD 102.0 (>89); PHOSPHORUS 1.8 mg/dL (2.5-5.0)
--- NOTE | 2025-04-27 07:58 | ED Physician Documentation ---
ED Addendum Addendum Addendum: I received signout/turnover of care in this patient from HUMAIRA Awad; please see her note for complete H&P. In brief, patient diagnosed with DKA on testing completed prior to sign-out and is currently on insulin drip. Unfortunately, there are no ICU beds available at [facility] and thus patient is held in the ED overnight. Patient's labs steadily improved on my overnight shift and, towards the end of my shift, we were able to stop the IV insulin. She is not quite ready for discharge at the end of my shift and there are morning labs pending, and thus care patient is turned over to Dr. Arboleda at the end of my shift. Discharge Plan Discharge Prescriptions: New insulin glargine [Basaglar KwikPen U-100 Insulin] 100 unit/mL (3 mL) insulin pen 20 unit subcut DAILY Qty: 15 2RF insulin aspart U-100 100 unit/mL (3 mL) insulin pen 1 sliding scale dose subcut USEASDIRECTD Qty: 15 2RF No Action gabapentin 300 mg capsule 300 mg PO DAILY Qty: 270 0RF rosuvastatin [Crestor] 40 mg tablet 40 mg PO DAILY Qty: 90 3RF metformin 1,000 MG tablet 1,000 mg PO DAILY insulin aspart U-100 [Novolog FlexPen U-100 Insulin] 100 UNIT/ML insulin pen 4 - 6 unit subcut AC insulin glargine [Basaglar KwikPen U-100 Insulin] 100 UNIT/ML insulin pen 22 unit subcut DAILY Ozempic 1 MG/0.75 ML pen injector See Rx Instructions .Route .COMPLEX Rx Instructions: QD Ozempic 1 mg/dose (4 mg/3 mL) pen injector 1 mg subcut QWEEK Print Language: Honduran Stand Alone Forms: PCP List
[2025-04-27] MEDS: ONDANSETRON 4 MG/2 ML VIAL IVP STA (07:59)
[2025-04-27] MEDS: POTASSIUM PHOSPHATE 15 MMOL in SODIUM CHLORIDE 0.9% 250 ML IV ONE (08:18)
[2025-04-27] MEDS ORDERED: SODIUM CHLORIDE FLUSH 0.9% 10 ML SYRINGE IVP PRN (09:49)
--- NOTE | 2025-04-27 09:50 | HISTORY & PHYSICAL EXAMINATION ---
<Statement entered by Jordan Alvarenga, DO - 04/27/25 16:17> I was present with the medical student on the hospitalist service. I personally verified the history of present illness and performed the physical examination and medical decision making. I have verified the medical students documentation for this encounter and agree with the plan of care below. In addition this a very pleasant 60-year-old female with a history of T2DM normally controlled with insulin, metformin and Ozempic who has run out of her insulin due to an insurance lapse. She is presenting in DKA. Has a history of ICU admission with prior DKA. She was stabilized in the ED, and has a downtrending anion gap. She has been off of insulin drip as well as fluids. Unfortunately she was off of fluids and insulin drip for too long before receiving basal insulin on admission to the hospital. Her gap is actually returned by now. Restarting her on some fluids now, will recheck a metabolic panel this evening, and again tomorrow morning. I suspect she will not need an insulin drip again. I have restarted her on her home dose of 20 units glargine. Will start 5 units with meals as well. Her nausea has now resolved by this afternoon. Not requiring antiemetics. She is eating and drinking. Suspect she will discharge home tomorrow. Will need some of her medications charitied. Discussed with case management today. For billing clarification: Patient is admitted with severe exacerbation of chronic condition with threat to her life. Her case was discussed with the ED doctor, Dr. Platt, and the I decided to admit her to observation for further stabilization. [id number] Chief Complaint Chief Complaint Chief Complaint: nausea, headache History of Present Illness Admitted From Admitted From:: ED History Obtained From History obtained from: patient History of Present Illness HPI Comment/Other: Jeny Arce is a 60 y/o female with history of T2DM, hyperlipidemia, who is admitted for DKA. She presented to the ED yesterday for persistent nausea and headache that started the day prior and persisted. Had episode of vomit yesterday. She was afebrile, but tachycardic with mild leukocytosis. Was found to be in DKA with POC glucose 400, anion gap of 23. VBG with pH of 7.1, CO2 11. She was positive for serum ketones. K+ 4.3. UA also showed glucosuria and +ketones, but negative for infection. She has been regularly taking her diabetic medications until 1.5 weeks ago, when she ran out of her long-acting insulin. She also takes metformin and Ozempic. Her last DKA hospitalization was >2 years ago in the context of starting Jardiance and had needed critical support at the time. She is currently working through her insurance enrollment gap with [employer] as her employer. 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 Lives with her and reports stable housing with appropriate food and water security. Does not drink alcohol and former <20 py smoker, quit decades ago. She has otherwise been well. Denies any fevers, chills. No chest pain, dyspnea or cough. No tingling or numbness, weakness. No diarrhea or abdominal pain. No dizziness or vertigo. Meds/Allgy Home Medications Ambulatory Orders Medication Instructions Recorded Confirmed insulin aspart U-100 100 unit/mL 4 - 6 unit subcut AC 03/18/23 04/27/25 (3 mL) subcutaneous pen (Novolog FlexPen U-100 Insulin aspart) insulin glargine 100 unit/mL (3 22 unit subcut DAILY 0 03/18/23 04/27/25 mL) subcutaneous pen (Basaglar KwikPen U-100 Insulin) metformin 1,000 mg tablet 1,000 mg PO DAILY 03/18/23 1 semaglutide 1 mg/dose (4 mg/3 mL) See Rx Instructions .Route .COMPLEX 01/12/24 08/02/24 subcutaneous pen injector (Ozempic) gabapentin 300 mg capsule 300 mg PO DAILY #270 caps 04/27/25 rosuvastatin 40 mg tablet (Crestor) 40 mg PO DAILY #90 tabs 07/28/24 04/27/25 semaglutide 1 mg/dose (4 mg/3 mL) 1 mg subcut QWEEK 04/27/25 subcutaneous pen injector (Ozempic) insulin aspart U-100 100 unit/mL 1 sliding scale dose subcut 04/27/25 (3 mL) subcutaneous pen USEASDIRECTD #15 mL insulin glargine 100 unit/mL (3 20 unit (0.2 mL) subcu t DAILY #15 04/27/25 mL) subcutaneous pen (Basaglar mL KwikPen U-100 Insulin) Allergies Allergies Allergy/AdvReac Type Severity Reaction Status Date / Time amoxicillin Allergy Severe Hives Verified 04/26/25 18:17 empagliflozin (From Allergy Severe Unknown Verified 04/26/25 18:17 Jardiance) niacin Allergy Severe Hives Verified 04/26/25 18:17 ampicillin Allergy Hives Verified 04/26/25 18:17 Sulfa (Sulfonamide Allergy Hives Verified 04/26/25 18:17 Antibiotics) PFSH Active Problems All Active Problems (Updated 04/27/25 @ 11:37 by Lenora Bangura) Hypophosphatemia (Acute) Metabolic acidosis, increased anion gap (Acute) Hyperlipidemia (Chronic) DKA, type 2 (Chronic) Swollen L ankle (Acute) Type 2 diabetes mellitus (Acute) Tinnitus, bilateral (Acute) Medical History Medical History (Updated 04/27/25 @ 11:37 by Lenora Bangura) DKA (diabetic ketoacidosis) Social History Social History (Updated 04/27/25 @ 11:47 by Lenora Bangura) Smoking Status: Former smoker If you are a former smoker, when did you quit? (Date/Year): 1991 Number of Years Smoked: 4 How many cigarettes a day do you smoke? (20 cigarettes=1 Pk): 2 Second hand tobacco smoke exposure: No Do you dip or chew tobacco?: No Do you vape?: No Level: Independent Do you feel safe in your home environment?: Yes History of physical, verbal, emotional, or financial abuse?: No ETOH Use: Wine ETOH - Additional Notes: 1-2 per week Substance Use: denies use POLST Patient has POLST: No Review of Systems Status of ROS: 10 or more systems reviewed and unremarkable except as noted in history and below Exam Exam Vital Signs: Vital Signs x48h Temp Pulse Pulse Resp BP BP Pulse Ox 04/27/25 10:00 36.8 C 87 16 125/59 L 97 04/27/25 09:15 37.0 C 83 18 117/53 L 96 04/27/25 08:00 83 18 121/46 L 98 04/27/25 07:00 82 18 112/43 L 94 04/27/25 06:00 87 23 118/90 98 04/27/25 05:00 87 22 123/67 98 04/27/25 04:00 77 22 121/76 98 Gen: Well nourished and well developed. No acute distress Heent: MMM. Normocephalic/atraumatic, normal appearance of external ears and nose. Cardiac: Regular rate and rhythm. No murmurs appreciated. No visible JVP elevation. Equal radial pulses 2+ Pulm: Normal respirations without increased effort. Clear to auscultation throughout without wheezes, rales or rhonchi. Abdomen: Soft, rounded, nontender. No rebound tenderness or guarding. Extremities: Moves all 4 extremities equally. Normal tone. Neuro: Face symmetric, CN II through XII intact grossly. No focal neurologic deficits. Psych: Mood euthymic with congruent affect. Good fund of knowledge. Judgment intact. Conclusion/Plan Problem List (1) DKA, type 2: (2) Type 2 diabetes mellitus: Plan: Resolving. AG 23 -> 13. Bicarb 13. K+ stable 3.9 with fluids and insulin drip. Glucose <200. Presented to ED in moderate DKA d/t not taking her home insulin. Ran out of her basal insulin 1.5 week ago and has been unable to refill. Currently in process of insurance re-enrollment with her employer. Typically takes 20 units of glargine, and 8 units mealtime. Last A1C 7.2 per patient. Also takes 1g metformin and weekly Ozempic. Otherwise remains stable with normal vital signs and nausea improving. - IV fluid and insulin drip has been stopped, 20u basal insulin given - Antinausea medications given - Will trial advancing diet as tolerated, encourage fluids po - If unable to tolerate by po, will restart her IV fluids. 1/2 NS with dextrose. - Will see if we can work with pharmacy/case management to see if she can go home with insulin supply. Qualifiers: Diabetes mellitus complication status: with other specified complication Diabetes mellitus oysterman insulin use: with long-term use Qualified Code(s): E11.69 - Type 2 diabetes mellitus with other specified complication; Z79.4 - assisted (current) use of insulin (3) Hypophosphatemia: Plan: Mild 1.8. Will replete if <1 - Encourage po as tolerated (4) Hyperlipidemia: Plan: Controlled on rosuvastatin 40mg daily Lab Results Lab results reviewed: Yes 04/26/25 18:28 04/27/25 07:10 Other Lab Results: 04-26-2025 UA positive for glucose and ketones, negative for infection Diagnostic Imaging Results Diagnostic Imaging Results Comments: None EKG Results EKG Interpreted Independently: Yes EKG Comparison: No prior EKG EKG Findings: Sinus rhythm, without prominent ST changes or T-wave inversions.
[2025-04-27] MEDS: POTASSIUM CHLOR 10 MEQ/100 ML 10 MEQ/100 ML BAG IV SCH (10:01)
[2025-04-27] MEDS: ENOXAPARIN 40 MG/0.4 ML SYRINGE SUBQ SCH (11:23)
[2025-04-27] MEDS: ACETAMINOPHEN 325 MG TABLET PO PRN (11:24)
[2025-04-27] MEDS: SODIUM CHLORIDE FLUSH 0.9% 10 ML SYRINGE IVP SCH (11:24)
[2025-04-27] MEDS ORDERED: METOCLOPRAMIDE 10 MG TABLET PO PRN (11:36)
[2025-04-27] MEDS: INSULIN LISPRO 300 UNIT/3 ML PEN SUBQ SCH (12:00)
[2025-04-27] MEDS: INSULIN GLARGINE-YFGN 300 UNIT/3 ML PEN SUBQ SCH (12:01)
--- NOTE | 2025-04-27 12:45 | PHARMACY PROGRESS NOTE ---
Best Possible Medication History Admit Date and Time: 04/27/25 [id number] Home Medications Medication Instructions Recorded Confirmed Type insulin aspart U-100 100 unit/mL 6 unit subcut AC 02/2804/27/25 History (3 mL) subcutaneous pen (Novolog FlexPen U-100 Insulin aspart) insulin glargine 100 unit/mL (3 16 unit subcut DAILY 0 03/18/23 04/27/25 History mL) subcutaneous pen (Basaglar KwikPen U-100 Insulin) gabapentin 300 mg capsule 300 mg PO DAILY #270 caps 04/27/25 Rx rosuvastatin 40 mg tablet (Crestor) 40 mg PO DAILY #90 tabs 07/28/24 04/27/25 Rx semaglutide 1 mg/dose (4 mg/3 mL) 1 mg subcut QWEEK 04/27/25 History subcutaneous pen injector (Ozempic) insulin aspart U-100 100 unit/mL 1 sliding scale dose subcut 04/27/25 Rx (3 mL) subcutaneous pen USEASDIRECTD #15 mL insulin glargine 100 unit/mL (3 20 unit (0.2 mL) subcu t DAILY #15 04/27/25 Rx mL) subcutaneous pen (Basaglar mL KwikPen U-100 Insulin) metformin 500 mg tablet,extended 1,000 mg PO DAILY 04/27/25 History release 24 hr [facility] Statement: DUPLICATES OF INSULIN APPEAR DUE TO NEW RX'S BEING ORDERED FOR DISCHARGE. INSULIN DATED 04/27 ARE TO BE STARTED POST DISCHARGE As the person ultimately responsible for medication therapy, providers are able to order a medication from an existing home medication list in [facility] via the "Reconcile Routine" prior to Confirmation of that medication by application support technician. Such practice is discouraged except when the physician, in their clinical judgment, deems that a medical need exists for a medication without regard to previous use.
[2025-04-27 13:53] LABS: HCT - HEMATOCRIT 43.0 % (37.0-47.0); HGB - HEMOGLOBIN 14.7 g/dL (12.0-16.0); MEAN PLATELET VOLUME 9.7 fL (7.9-10.8); PLT - PLATELET COUNT 285.0 10^3/uL (130-450); RED CELL DISTRIBUTION WIDTH 13.8 % (12.0-15.0)
[2025-04-27 14:25] LABS: PHOSPHORUS 2.2 mg/dL (2.5-5.0)
[2025-04-27 14:30] LABS: BUN - BLOOD UREA NITROGEN 8.0 mg/dL (6-20); CARBON DIOXIDE - CO2 11.0 mmol/L (21-32); CREATININE 0.5 mg/dL (0.6-1.3); GFR - MDRD 126.0 (>89)
[2025-04-27] MEDS: LACTATED RINGERS 1,000 ML IV SCH (17:52)
[2025-04-27] MEDS: SODIUM CHLORIDE 0.9% 1,000 ML IV ONE (18:15)
[2025-04-27 20:27] LABS: BUN - BLOOD UREA NITROGEN 9.0 mg/dL (6-20); CARBON DIOXIDE - CO2 13.0 mmol/L (21-32); CREATININE 0.7 mg/dL (0.6-1.3); GFR - MDRD 86.0 (>89)
[2025-04-27] MEDS: ONDANSETRON ODT 4 MG TABLET TL PRN (20:55)
[2025-04-27] MEDS ORDERED: INSULIN GLARGINE-YFGN 300 UNIT/3 ML PEN SUBQ SCH (21:00)
[2025-04-27 22:39] LABS: ESTIMATED AVERAGE GLUCOSE 280 mg/dL (70-100); HEMOGLOBIN A1c% 11.4 % (4.27-6.07)
--- NOTE | 2025-04-28 07:03 | Discharge Summary ---
<Statement entered by Jordan Alvarenga, DO - 04/28/25 16:59> I was present with the medical student on the hospitalist service. I personally verified the history of present illness and performed the physical examination and medical decision making. I have verified the medical students documentation for this encounter and agree with the plan of care below. In addition very minh lady with a history of T2DM who presents with DKA. She had treatment of her DKA in the ED on the night of her arrival, and had closure of her anion gap. She was taken off of insulin drip prematurely before she was given subcutaneous insulin which resulted in her having some rebound acidosis. This required a couple of boluses of fluid. She still has some elevated anion gap up to 14, but her acidotic state is improving steadily, and she is able to orally hydrate. She is not nauseous and tolerating an oral diet. Her blood sugars have remained reasonably controlled, and should improve even better when she is back on her GLP-1 and metformin which she has at home. The etiology of her DKA was discontinuation of her insulin due to insurance reasons. We were able to provide geronimo meds to the [facility] pharmacy for her basal and bolus insulin which was supplied to her at discharge. She will follow-up with her podiatric surgeon for repeat labs and her primary care doctor in the coming 1-2 weeks. I did encourage her to invest in some keto sticks which she will seek out at her place of employment, [employer]. I spent a total of 42 minutes interviewing and working with the patient today informing her of her plan of care, and coordinating her discharge. She discharges home in stable condition by private vehicle. Discharge Summary Admit Date: 04/27/25 Discharge Date: 04/28/25 Discharging Provider: Jordan Alvarenga Primary Care Provider: Julien Silva Code Status: Attempt Resuscitation Discharge Facility Name: Home DIAGNOSES Discharge Diagnoses with Status of Each Condition: #Diabetic Ketoacidosis #Type 2 diabetes mellitus - not well controlled, A1C 11.4 Resolved with fluids and restarted on home dose basal insulin. Found to be in moderate DKA d/t missed insulin doses. Had lapse in insurance, in process of re- enrollment with her employer. Provided pharmacy voucher to use for insulin geronimo in the meantime. - Continue home dose insulin - Continue metformin and Ozempic - Follow up with PCP or her podiatric surgeon for tighter blood glucose control #Hypophosphatemia Mild 1.6. Repletion not needed during this hospitalization, and was able to resume normal diet po without concerns. #Hyperlipidemia Controlled on rosuvastatin 40mg daily HPI History of Present Illness: Jeny Arce is a 60 y/o female with history of T2DM, hyperlipidemia, who is admitted for DKA. She presented to the ED yesterday for persistent nausea and headache that started the day prior and persisted. Had episode of vomit yesterday. She was afebrile, but tachycardic with mild leukocytosis. Was found to be in DKA with POC glucose 400, anion gap of 23. VBG with pH of 7.1, CO2 11. She was positive for serum ketones. K+ 4.3. UA also showed glucosuria and +ketones, but negative for infection. She has been regularly taking her diabetic medications until 1.5 weeks ago, when she ran out of her long-acting insulin. She also takes metformin and Ozempic. Her last DKA hospitalization was >2 years ago in the context of starting Jardiance and had needed critical support at the time. She is currently working through her insurance enrollment gap with [employer] as her employer. 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 Lives with her and reports stable housing with appropriate food and water security. Does not drink alcohol and former <20 py smoker, quit decades ago. She has otherwise been well. Denies any fevers, chills. No chest pain, dyspnea or cough. No tingling or numbness, weakness. No diarrhea or abdominal pain. No dizziness or vertigo. HOSPITAL COURSE Hospital Course: Patient arrived to ED 04/27 for nausea and headache with high suspicion for DKA, given her known history of insulin dependent type II diabetes. She revealed she had run out of her basal insulin because of a lapse in insurance coverage, and had been using only her short-acting insulin to meet her insulin needs. She was found to be tachycardic on arrival with mild leukocytosis. UA was positive for ketones and glucosuria, negative for infection. On further review she denied other symptoms, and her exam was otherwise unremarkable to warrant other infectious work-up. EKG showed sinus rhythm without acute changes. Her labs revealed findings consistent in moderate DKA. AG of 23, bicarb 13, glucose >400s. VBG pH 7.1 was consistent with metabolic acidosis and respiratory compensation. She was stabilized in the ED with IV fluids and insulin drip, and her anion gap resolving. The rest of her course remained uncomplicated. Her basal insulin dose was resumed. By evening, her nausea and headache was improved and patient was able to tolerate full diet without antiemetic meds. She received few additional LR boluses to maintain correction of her metabolic derangement. She otherwise remained clinically stable and was medically cleared for discharge 04/28 with the resolution of her DKA. ALLERGIES Allergies Allergy/AdvReac Type Severity Reaction Status Date / Time amoxicillin Allergy Severe Hives Verified 04/26/25 18:17 empagliflozin (From Allergy Severe Unknown Verified 04/26/25 18:17 Jardiance) niacin Allergy Severe Hives Verified 04/26/25 18:17 ampicillin Allergy Hives Verified 04/26/25 18:17 Sulfa (Sulfonamide Allergy Hives Verified 04/26/25 18:17 Antibiotics) MEDICATIONS Ambulatory Orders Medication Instructions Recorded Confirmed gabapentin 300 mg capsule 300 mg PO DAILY #270 caps 04/27/25 rosuvastatin 40 mg tablet (Crestor) 40 mg PO DAILY #90 tabs 07/28/24 04/27/25 semaglutide 1 mg/dose (4 mg/3 mL) 1 mg subcut QWEEK 04/27/25 subcutaneous pen injector (Ozempic) metformin 500 mg tablet,extended 1,000 mg PO DAILY 04/27/25 release 24 hr insulin aspart U-100 100 unit/mL 6 unit (0.06 mL) subc ut AC #9 mL 04/28/25 (3 mL) subcutaneous pen (Novolog FlexPen U-100 Insulin aspart) insulin glargine 100 unit/mL (3 20 unit (0.2 mL) subcu t DAILY #9 mL 04/28/25 mL) subcutaneous pen (Basaglar KwikPen U-100 Insulin) PHYSICAL EXAM AT DISCHARGE Vital Signs: Vital Signs x48h Temp Pulse Resp BP Pulse Ox 04/28/25 15:00 37.0 C 69 18 115/64 96 04/28/25 12:00 36.7 C 101 H 18 120/84 98 Physical Exam Other/Comments: Gen: Well nourished and well developed. No acute distress Heent: MMM. Normocephalic/atraumatic, normal appearance of external ears and nose. Cardiac: Regular rate and rhythm. No murmurs appreciated. No visible JVP elevation. Equal radial pulses 2+ Pulm: Normal respirations without increased effort. Clear to auscultation throughout without wheezes, rales or rhonchi. Abdomen: Soft, rounded, nontender. No rebound tenderness or guarding. Extremities: Moves all 4 extremities equally. Normal tone. Neuro: Face symmetric, CN II through XII intact grossly. No focal neurologic deficits. Psych: Mood euthymic with congruent affect. Good fund of knowledge. Judgment intact. LABS 04/27/25 13:46 04/28/25 14:08 DIAGNOSTIC IMAGING Diagnostic Imaging Results Comments: EKG 04-26-2025 Sinus rhythm, without prominent ST changes or T-wave inversions. QUALITY (Female Hip Fx Only) Was patient sent home on osteoporosis medication?: No FOLLOW UP Follow Up: Follow up with PCP for diabetic management, A1C 11.4 Discharge Plan Discharge Patient Disposition: Home, Self Care Condition: Stable Medically Cleared Date:: 04/28/25 Prescriptions: Continued gabapentin 300 mg capsule 300 mg PO DAILY Qty: 270 0RF rosuvastatin [Crestor] 40 mg tablet 40 mg PO DAILY Qty: 90 3RF metformin 500 mg tablet extended release 24 hr 1,000 mg PO DAILY Patient Comments: take 2 tablets by mouth once daily insulin aspart U-100 [Novolog FlexPen U-100 Insulin] 100 UNIT/ML insulin pen 6 unit subcut AC Qty: 9 0RF Rx Instructions: PLUS ADDITIONAL UNITS PER SLIDING SCALE Ozempic 1 mg/dose (4 mg/3 mL) pen injector 1 mg subcut QWEEK Changed insulin glargine [Basaglar KwikPen U-100 Insulin] 100 UNIT/ML insulin pen 20 unit subcut DAILY Qty: 9 0RF Diet: Regular Interventions: Discharge Last Done: 04/28/25 15:00 Discharge Checklist - Nursing Last Done: 04/28/25 15:00 Discharge Vital Signs (30 Minutes) Last Done: 04/28/25 15:00 Health Concerns: You came in because you were having nausea vomit and headache, and were found to be in diabetic ketoacidosis (DKA). While you were here, you received IV fluids, insulin and potassium supplements. You had good improvement of your symptoms as well as the resolution of your acidosis. We have also provided you with a pharmacy voucher so that you are able to pepper picker a supply of insulin to cover your insurance lapse period. - You will need to continue to take your insulin as prescribed. You should continue your daily basal dose of 20 units and mealtime units up to 10 units. Please go to the pharmacy and present the voucher provided to you to pepper picker your medications. - Please resume your metformin and Ozempic for your diabetes as well. - You will need to follow-up with your PCP or Crimper Operator Dr. Belcher to recheck your labs and review your diabetic medications. You will need to recheck a basic metabolic panel in the next 1-2 weeks. - Drink plenty of fluids. Staying well-hydrated will help to flush out the elevated ketones and lower your blood sugar. - Eat well balanced diabetic diet. Limit refined carbohydrates (white bread, pasta, rice) and focus on whole grains, fruits, and vegetables. Choose lean proteins and healthy fat options. Avoid sugary drinks, processed foods, and desserts. We are so glad you are feeling better. Thank you for letting us take care of you. Assessment: Patient is A/Ox4, able and ambulatory. States understanding of discharge. Accompanied by staff in a wheelchair to the front of the building where she got into POV with her son. Print Language: Palestinian Patient Instructions: Diabetic Ketoacidosis Follow-up Care: Julien Silva FNP [Primary Care Provider, Family Practice] Ivan Belcher DO [Physician No Access, Internal Medicine] Vitals documented within 30 minutes of discharge?: Yes (T 37.0 O2 96% HR 69 BP 115/64 RR 18)
[2025-04-28 08:18] LABS: BUN - BLOOD UREA NITROGEN 6.0 mg/dL (6-20); CARBON DIOXIDE - CO2 14.0 mmol/L (21-32); CREATININE 0.6 mg/dL (0.6-1.3); GFR - MDRD 102.0 (>89); PHOSPHORUS 1.6 mg/dL (2.5-5.0)
[2025-04-28] MEDS: LACTATED RINGERS 1,000 ML IV ONE (09:49)
[2025-04-28 14:32] LABS: BUN - BLOOD UREA NITROGEN 10.0 mg/dL (6-20); CARBON DIOXIDE - CO2 15.0 mmol/L (21-32); CREATININE 0.7 mg/dL (0.6-1.3); GFR - MDRD 86.0 (>89); PHOSPHORUS 1.5 mg/dL (2.5-5.0)
[2025-04-28] MEDS: POTASSIUM CHLORIDE 20 MEQ TABLET PO ONE (14:51)
[2025-04-28 15:37] VITALS: BP 115/64; TEMP 98.6; O2SAT 96
--- NOTE | 2025-04-28 22:04 | ED Physician Documentation ---
ED Addendum Addendum Addendum: Patient care assumed at change of shift. Pt was overnight due to no beds available (or more correctly nursing/aides), due to DKA. Labs improving in AM and she was taken off insulin drip. Has been still with some nausea. Updated labs this morning still showing acidosis though she has closed the anion gap and chemistry is still off okay with some low K and phosphorus. She vomited once again and was given Zofran dose. Given the still nausea, still some acidosis, and lytes off, I feel the patient is not good for discharge. She is off insulin drip so does not need ICU anymore. I talkedd with Hospitalist about Med/Surg bed and was agreeable. Disposition: placed in OBS in stable condition. Diagnoses: Acute DKA diabetes Discharge Plan Discharge Patient Disposition: ED Place in Observation Condition: Stable Clinical Impression: DKA, type 2 Type 2 diabetes mellitus Qualifiers: Diabetes mellitus exterminator helper insulin use: with exterminator helper use Diabetes mellitus complication status: with other specified complication Qualified Code(s): E11.69 - Type 2 diabetes mellitus with other specified complication Interventions: ED Admission Assessment Last Done: 04/27/25 09:15 Vitals documented within 30 minutes of discharge?: Yes (T 37.0 O2 96% HR 69 BP 115/64 RR 18)
== END 2025-04-28 15:00 | disposition home or self-care (01) ==
LOC: MS3 18:02 → ED 18:02 → MS3 04-27 09:17
PROVIDERS: ADMIT Student in an Organized Health Care Education/Training Program; ATTEND Student in an Organized Health Care Education/Training Program
DX: Z79.4 Long term (current) use of insulin; Z91.141 Patient's other noncompliance with medication regimen due to financial hardship; Z87.891 Personal history of nicotine dependence; R00.0 Tachycardia, unspecified; E11.10 Type 2 diabetes mellitus with ketoacidosis without coma; D72.829 Elevated white blood cell count, unspecified; E78.5 Hyperlipidemia, unspecified; Z86.73 Personal history of transient ischemic attack (TIA), and cerebral infarction without residual deficits; Z79.84 Long term (current) use of oral hypoglycemic drugs; T38.3X6A Underdosing of insulin and oral hypoglycemic [antidiabetic] drugs, initial encounter; Z79.85 Long-term (current) use of injectable non-insulin antidiabetic drugs; E83.39 Other disorders of phosphorus metabolism